=== PATIENT | male | born 1975 ===

== ENCOUNTER 2018-03-09 13:14 | Emergency (ER) | payer OTHER ==
[2018-03-09 13:58] VITALS: BP 128/81
--- NOTE | 2018-03-09 14:44 | ED PDOC ---
Upper Extremity Pain/Injury Time Seen by Provider: 03/09/18 14:17 Chief Complaint (Nursing): Upper Extremity Problem/Injury Chief Complaint (Provider): Left Shoulder Pain History Per: Patient Current Symptoms Are (Timing): Still Present Additional Complaint(s): 42 y/o right hand dominant male presents for evaluation of non-radiating left shoulder pain x 1 month. 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 He reports taking Ibuprofen with mild relief. Pain is worse with movement and lifting, better with rest. Denies associated chest pain, shortness of breath, or dyspnea on exertion. PMD: none Past Medical History Reviewed: Historical Data, Nursing Documentation, Vital Signs Vital Signs: Last Vital Signs Temp 98.4 F 03/09/18 13:55 Pulse 79 03/09/18 13:55 Resp 20 03/09/18 13:55 BP 128/81 03/09/18 13:55 Pulse Ox 98 03/09/18 13:55 - Medical History PMH: No Chronic Diseases - Surgical History Surgical History: No Surg Hx - Family History Family History: States: No Known Family Hx - Living Arrangements Living Arrangements: With Family - Social History Current smoker - smoking cessation education provided: No Alcohol: None Drugs: Denies - Allergies Allergies/Adverse Reactions: Allergies Allergy/AdvReac Type Severity Reaction Status Date / Time No Known Allergies Allergy Verified 03/09/18 14:55 Review of Systems ROS Statement: Except As Marked, All Systems Reviewed And Found Negative Cardiovascular: Negative for: Chest Pain Respiratory: Negative for: Shortness of Breath, SOB with Exertion Musculoskeletal: Positive for: Shoulder Pain (left) Physical Exam - Reviewed Nursing Documentation Reviewed: Yes Vital Signs Reviewed: Yes - Physical Exam Appears: Positive for: Well, Non-toxic, No Acute Distress Head Exam: Positive for: ATRAUMATIC, NORMAL INSPECTION, NORMOCEPHALIC Skin: Positive for: Normal Color. Negative for: Rash Eye Exam: Positive for: Normal appearance Neck: Positive for: Normal, Painless ROM Cardiovascular/Chest: Positive for: Regular Rate, Rhythm Respiratory: Positive for: Normal Breath Sounds. 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 He is aware of x-ray results. All questions answered. Sling declined. Patient was referred to clinic for follow-up. Scribe Attestation: Documented by Earle Pérez, acting as a scribe for Eva Loomis PA-C. Provider Scribe Attestation: All medical record entries made by the Scribe were at my direction and personally dictated by me. I have reviewed the chart and agree that the record accurately reflects my personal performance of the history, physical exam, medical decision making, and the department course for this patient. I have also personally directed, reviewed, and agree with the discharge instructions and disposition. Disposition - Clinical Impression Clinical Impression: Shoulder pain - Patient ED Disposition Is Patient to be Admitted: No Counseled Patient/Family Regarding: Studies Performed, Diagnosis, Need For Followup, Rx Given - Disposition Referrals: [facility] [Outside] Disposition: Routine/Home Disposition Time: 16:10 Condition: STABLE Additional Instructions: Tick prescription medicines directed as needed for pain. Rest affected area and avoid heavy lifting. Follow up with clinic for any persistent symptoms. Instructions: Shoulder Pain (DC) Forms: [email or web address] (Turkish) Print Language: YI
--- NOTE | 2018-03-09 16:02 | RAD ---
PROCEDURE: Radiographs of the Left Shoulder HISTORY: shoulder pain for 1 month COMPARISON: No prior. FINDINGS: BONES: There is no evidence of acute fracture or destructive bony lesion. There are 2 foci of sclerotic changes/ sclerotic bony lesion at the left humeral head may represent benign findings such as bone islands. Otherwise the osseous structures are grossly unremarkable. JOINTS: Normal. Glenohumeral and acromioclavicular joints preserved. No osteoarthritis. SOFT TISSUES: Normal. OTHER FINDINGS: None. IMPRESSION: No evidence of acute fracture or dislocation. No evidence of destructive bony lesion. Two sclerotic bony lesion noted at the left humeral head may represent benign findings such as bone island.
[2018-03-09 16:24] VITALS: PULSE 84; RESP 18; TEMP 98.3; O2SAT 100
== END 2018-03-09 16:24 | disposition home or self-care (01) ==
LOC: H.ER 13:14
DX: M25.512 Pain in left shoulder (principal)